=== PATIENT | female | born 1990 | race Two or more races ===

== ENCOUNTER → 2024-02-01 | Outpatient (REF) | payer OTHER | LOC: M LAB REF 17:52 | PROVIDERS: ATTEND Student in an Organized Health Care Education/Training Program | DX: J02.9 Acute pharyngitis, unspecified (principal) ==

== ENCOUNTER → 2024-04-24 | Outpatient (REF) | payer OTHER | LOC: M LAB REF 17:49 | PROVIDERS: ATTEND Otolaryngology | DX: J03.90 Acute tonsillitis, unspecified (principal) ==

== ENCOUNTER → 2024-05-28 | Outpatient (REF) | payer OTHER | LOC: M SFHCWAGY 13:16 | PROVIDERS: ATTEND Obstetrics & Gynecology | DX: R87.810 Cervical high risk human papillomavirus (HPV) DNA test positive (principal); N87.9 Dysplasia of cervix uteri, unspecified ==